=== PATIENT | female | born 1995 | race African-American/Black ===

== ENCOUNTER 2017-05-02 15:39 | Emergency (ER) | payer MEDICAID, OTHER ==
[~2017-05-02] VITALS: Ht 160 cm; Wt 58.0 kg
[2017-05-02 15:40] VITALS: BP 111/64; PULSE 97; RESP 14; TEMP 98; O2SAT 99
--- NOTE | 2017-05-02 16:45 | PD ---
HPI Chief Complaint: Complaint Time Seen by Provider: 16:45 Travel History International Travel<30 days: No Contact w/Intl Traveler<30days: No Traveled to known affect area: No History of Present Illness HPI 21-year-old female presents to the ED for evaluation of one week history of thick white vaginal discharge. Denies fevers, chills, nausea, vomiting, abdominal pain, dysuria, back pain. Endorses unprotected sex with a male. Denies risk of . LMP "last month." PFSH Past Medical History Anemia: Yes ?: Unknown LMP: ON DEPO, IRREGULAR Social History Alcohol Use: No Tobacco Use: No Substance Use: No Allergies-Medications (Allergen,Severity, Reaction): Coded Allergies: No Known Allergies (Unverified , 05/02/17) Review of Systems Except as stated in HPI: all other systems reviewed are Neg Physical Exam Narrative GENERAL: Well-nourished, well-developed nontoxic-appearing petite black female in no acute distress. SKIN: Focused skin assessment warm/dry. HEAD: Normocephalic. EYES: No scleral icterus. No injection or drainage. NECK: Supple, trachea midline. No JVD or lymphadenopathy. CARDIOVASCULAR: Regular rate and rhythm without murmurs, gallops, or rubs. RESPIRATORY: Breath sounds equal bilaterally. No accessory muscle use. GASTROINTESTINAL: Abdomen soft, non-tender, nondistended. Active bowel sounds. GENITOURINARY: Normal external genitalia without lesions or erythema. Vaginal vault without blood. Scant thick, white drainage. Cervical os was closed without drainage. No cervical motion tenderness. Uterus nontender and nonenlarged. Bilateral adnexa nontender without masses. MUSCULOSKELETAL: No cyanosis, or edema. BACK: Nontender without obvious deformity. No CVA tenderness. Data Data Last Documented VS Vital Signs Date Time Temp Pulse Resp B/P Pulse Ox O2 Delivery O2 Flow Rate FiO2 05/02/17 18:42 78 20 104/60 98 05/02/17 15:40 98.0 Orders Urinalysis - C+S If Indicated (05/02/17 16:11) Ed Urine Pregnancytest Poc (05/02/17 16:11) Wet Prep Profile (05/02/17 16:11) Gc And Chlamydia Pcr (05/02/17 16:11) Azithromycin Powd Pack (Zithromax Powd P (05/02/17 18:00) Ceftriaxone Inj (Rocephin Inj) (05/02/17 18:00) Lidocaine 1% Inj (50 Ml) (Xylocaine 1% I (05/02/17 18:00) Labs Laboratory Tests Test 05/02/17 05/02/17 16:10 16:55 Urine Color YELLOW Urine Turbidity CLEAR Urine pH 8.5 Urine Specific [place] 1.023 Urine Protein TRACE mg/dL Urine Glucose (UA) NEG mg/dL Urine Ketones NEG mg/dL Urine Occult Blood NEG Urine Nitrite NEG Urine Bilirubin NEG Urine Urobilinogen 2.0 MG/DL Urine Leukocyte Esterase NEG Urine RBC 1 /hpf Urine WBC LESS THAN 1 /hpf Urine Squamous Epithelial 4 /hpf Cells Urine Amorphous Sediment RARE Urine Bacteria RARE /hpf Urine Mucus FEW /lpf Microscopic Urinalysis Comment CULT NOT INDICATED Clue Cells (Wet Prep) NONE SEEN Vaginal Trichomonas (Wet Prep) NONE SEEN Vaginal Yeast (Wet Prep) NONE SEEN MDM Medical Decision Making Medical Screen Exam Complete: Yes Emergency Medical Condition: Yes Differential Diagnosis UTI versus vaginal candidiasis versus GC versus chlamydia versus CVA versus other Narrative Course 21-year-old female presents to the ED for evaluation of one week history of thick white vaginal discharge. Denies fevers, chills, nausea, vomiting, abdominal pain, dysuria, back pain. Endorses unprotected sex with a male. Denies risk of . LMP "last month." Patient is afebrile, nontoxic- appearing on presentation. Abdominal exam is benign. There is scant thick white discharge in the vaginal vault but the pelvic exam is otherwise unremarkable. ED urine test negative. No culture indicated of the UA. Wet prep negative. GC and chlamydia pending. I discussed the results of the the workup with the patient. Given her risk of unprotected sex I recommended. Treatment for GC and chlamydia. The patient consented to this treatment. She is instructed to abstain or use barrier methods during sexual activity, follow-up with the health department for full STD screening. She indicated understanding of the instructions and is agreeable to the care plan. She is stable and discharged home. Diagnosis Primary Impression: Vaginal discharge Referrals: [employer] [facility] Dept. Patient Instructions: General Instructions, Sexually Transmitted Diseases in Adolescents (ED) Additional Instructions: Rest, hydrate. Use condoms to help prevent STDs. He were empirically treated for gonorrhea and chlamydia today. Abstain from sexual activity until cure is proven. Follow-up with the health department for a STD screen and test of cure. Return to the ED for worsening of symptoms or any urgent or emergent medical condition. Disposition: 01 DISCHARGE HOME Condition: Stable Deja Patricio May 02, 2017 16:45
[2017-05-02 17:01] LABS: BACTERIA, URINE RARE /hpf; BLOOD, URINE NEG (NEG); GLUCOSE,URINE NEG (NEG); KETONE, URINE NEG (NEG); MUCUS URINE FEW /lpf (OCC); NITRITE,URINE NEG (NEG); PH, URINE 8.5 (5.0-8.5); SQUAMOUS EPITHELIAL CELL URINE 4 /hpf (0-5); URINE COLOR YELLOW (YELLW/STRAW)
[2017-05-02 17:03] LABS: COMMENT (UR) CULT NOT INDICATED; CULTURE IF INDICATED CULT NOT INDICATED
[2017-05-02] MEDS ORDERED: cefTRIAXone 250 MG VIAL IM ONE (18:00)
[2017-05-02] MEDS ORDERED: AZITHROMYCIN PWD FOR SUSP 1 GM PACKET PO ONE (18:00)
[2017-05-02] MEDS ORDERED: LIDOCAINE HCL 1% 50 ML VIAL IM ONE (18:00)
[2017-05-02 18:42] VITALS: BP 104/60
[2017-05-02 19:14] LABS: CHLAMYDIA PCR DETECTED (NOT DETECT); NEISSERIA PCR DETECTED (NOT DETECT)
== END 2017-05-02 18:43 | disposition home or self-care (01) ==
LOC: NEPD 15:39
DX: N89.8 Other specified noninflammatory disorders of vagina (principal); D64.9 Anemia, unspecified
CPT/HCPCS: 81001; 84703; 87210; 87491; 87591; 96372; 99284; J0696

== ENCOUNTER 2017-12-21 00:08 | Emergency (ER) | payer MEDICAID ==
[~2017-12-21] VITALS: Ht 160 cm; Wt 60.0 kg
[2017-12-21 00:09] VITALS: BP 103/72; PULSE 72; RESP 16; TEMP 98.4; O2SAT 100
--- NOTE | 2017-12-21 00:31 | PD ---
HPI Chief Complaint: Cold / Flu Symptoms Time Seen by Provider: 00:29 Travel History International Travel<30 days: No Contact w/Intl Traveler<30days: No Traveled to known affect area: No History of Present Illness HPI 22-year-old female presents to the emergency department for evaluation of cough and chest congestion worsening over the last week. Patient has had intermittent body aches. Subjective fever and chills. Her throat has been intermittently sore. Patient denies any nausea or vomiting. She has no current fever. She has no other symptoms to report at this time. Denies chance of . [facility] Past Medical History Anemia: Yes ?: Not Past Surgical History Surgical History: No Previous Surgery Social History Alcohol Use: Yes ([facility]) Tobacco Use: No Substance Use: No Allergies-Medications (Allergen,Severity, Reaction): Coded Allergies: No Known Allergies (Unverified Adverse Reaction, Unknown, 12/21/17) Reported Meds & Prescriptions Reported Meds & Active Scripts Active Tessalon Perles (Benzonatate) 100 Mg Cap 200 Mg PO TID PRN Review of Systems Except as stated in HPI: all other systems reviewed are Neg Physical Exam Narrative GENERAL: Well-nourished female patient in no acute distress. SKIN: Focused skin assessment warm/dry. HEAD: Atraumatic. Normocephalic. EYES: Pupils equal and round. No scleral icterus. No injection or drainage. ENT: No nasal bleeding or discharge. Mucous membranes pink and moist. NECK: Trachea midline. No JVD. CARDIOVASCULAR: Regular rate and rhythm. No murmur appreciated. RESPIRATORY: No accessory muscle use. Clear to auscultation. Breath sounds equal bilaterally. GASTROINTESTINAL: Abdomen soft, non-tender, nondistended. Hepatic and splenic margins not palpable. MUSCULOSKELETAL: No obvious deformities. No clubbing. No cyanosis. No edema. NEUROLOGICAL: Awake and alert. No obvious cranial nerve deficits. Motor grossly within normal limits. Normal speech. PSYCHIATRIC: Appropriate mood and affect; insight and judgment normal. Data Data Last Documented VS Vital Signs Date Time Temp Pulse Resp B/P (MAP) Pulse Ox O2 Delivery O2 Flow Rate FiO2 12/21/17 00:09 98.4 72 16 103/72 (82) 100 Room Air Orders Orders Influenzae A/B Antigen (12/21/17 00:32) Ed Discharge Order (12/21/17 01:09) MDM Medical Decision Making Medical Screen Exam Complete: Yes Emergency Medical Condition: Yes Medical Record Reviewed: Yes Differential Diagnosis Common cold versus pneumonia versus influenza versus allergies Narrative Course 22-year-old female presents to emergency department for evaluation. Patient appears without distress. Vital signs are stable. Influenza screen is negative. Patient is counseled on care for a likely viral URI. She'll be prescribed Tessalon Perles. Encouraged follow-up with primary care provider and advised her to return immediately with any acute worsening of symptoms. Diagnosis Primary Impression: URI (upper respiratory infection) Qualified Codes: J06.9 - Acute upper respiratory infection, unspecified Referrals: Primary Care Physician Patient Instructions: General Instructions, Upper Respiratory Infection (ED) Departure Forms: Tests/Procedures, Work Release Enter return to work date: Dec 22, 2017 Additional Instructions: Rest Maintain adequate oral hydration Humidified air may help to alleviate symptoms Follow-up with a primary care provider Return immediately with any acute worsening of symptoms Med/Other Pt SpecificInfo: Prescription(s) given Scripts Benzonatate (Tessalon Perles) 100 Mg Cap 200 MG PO TID Y for COUGH, #20 CAP 0 Refills Prov: Rossy Lord 12/21/17 Disposition: 01 DISCHARGE HOME Condition: Stable Rossy Lord Dec 21, 2017 00:31
[2017-12-21] MEDS ORDERED: BENZ100 PO (01:11)
== END 2017-12-21 02:44 | disposition home or self-care (01) ==
LOC: NEPD 00:08
DX: J06.9 Acute upper respiratory infection, unspecified (principal)
CPT/HCPCS: 87804; 99283

== ENCOUNTER 2018-03-11 16:02 | Emergency (ER) | payer SELFPAY ==
[~2018-03-11] VITALS: Ht 160 cm; Wt 62.0 kg
[~2018-03-11 16:02] MED LIST: BENZ100 PO
[2018-03-11 16:17] VITALS: BP 117/66; PULSE 85; RESP 19; TEMP 98.3; O2SAT 100
[2018-03-12] MEDS ORDERED: METR-1 PO (11:01)
== END 2018-03-11 18:46 | disposition left against medical advice (07) ==
LOC: NED 16:02
DX: R10.9 Unspecified abdominal pain (principal); Z53.21 Procedure and treatment not carried out due to patient leaving prior to being seen by health care provider
CPT/HCPCS: 99281

== ENCOUNTER 2018-03-12 08:40 | Emergency (ER) | payer MEDICAID ==
[~2018-03-12] VITALS: Ht 160 cm; Wt 61.2 kg
[2018-03-12 08:42] VITALS: BP 116/73; PULSE 85; RESP 16; TEMP 97.9; O2SAT 100
--- NOTE | 2018-03-12 09:24 | PD ---
HPI Chief Complaint: Assembly Supervisor Problem/Complaint Time Seen by Provider: 09:04 Travel History International Travel<30 days: No Contact w/Intl Traveler<30days: No Traveled to known affect area: No History of Present Illness HPI The patient is a 22-year-old female who presents to emergency department for vaginal discharge for 2 weeks duration. The patient notes vaginal discharge which she describes as thick, white, with a foul smell for 2 weeks. She denies any dysuria, frequency, urgency, or pelvic pain. She does have a history of previous gonorrhea and chlamydia that was treated over the summertime of 2016. The patient had Depo injection in the past, has irregular menstrual cycles. Her last menstrual cycle was January 2018. She is sexually active. She denies any nausea, vomiting, upper abdominal pain, fever, chills, or sweats. Symptoms are moderate. PFSH Past Medical History Anemia: Yes ?: Not LMP: 02/06/18-- DEPO Past Surgical History Surgical History: No Previous Surgery Social History Alcohol Use: Yes (OCC) Tobacco Use: No Substance Use: No Allergies-Medications (Allergen,Severity, Reaction): Coded Allergies: No Known Allergies (Unverified Adverse Reaction, Unknown, 12/21/17) Reported Meds & Prescriptions Reported Meds & Active Scripts Active No Active Prescriptions or Reported Medications Review of Systems Except as stated in HPI: all other systems reviewed are Neg General / Constitutional: No: Fever, Chills Gastrointestinal: No: Nausea, Vomiting, Abdominal Pain Genitourinary: Positive: Discharge, No: Urgency, Frequency, Dysuria, Hematuria , Pelvic Pain, Vaginal Bleeding Skin: No Rash, No Itching Physical Exam Narrative GENERAL: Awake, alert, pleasant 22-year-old female who appears her stated age and is in no acute respiratory distress. SKIN: Focused skin assessment warm/dry. HEAD: Atraumatic. Normocephalic. GASTROINTESTINAL: Abdomen soft, non-tender, nondistended. No rebound tenderness. No guarding or rigidity. No suprapubic tenderness. Back: No CVA tenderness. Genitourinary: The exam was performed in the presence of a female nurse. External examination reveals no rashes or lesions. Speculum examination reveals thick white discharge in the vaginal vault. Cervix is closed. No cervical motion tenderness or adnexal tenderness. MUSCULOSKELETAL: No obvious deformities. No clubbing. No cyanosis. No edema. NEUROLOGICAL: Awake and alert. No obvious cranial nerve deficits. Motor grossly within normal limits. Normal speech. PSYCHIATRIC: Appropriate mood and affect; insight and judgment normal. Data Data Last Documented VS Vital Signs Date Time Temp Pulse Resp B/P (MAP) Pulse Ox O2 Delivery O2 Flow Rate FiO2 03/12/18 08:42 97.9 85 16 116/73 (87) 100 Orders Orders Gc And Chlamydia Pcr (03/12/18 09:20) Wet Prep Profile (03/12/18 09:20) Urinalysis - C+S If Indicated (03/12/18 09:20) Ua Includes Microscopic (03/12/18 09:20) Ed Urine Pregnancytest Poc (03/12/18 09:20) Azithromycin Powd Pack (Zithromax Powd P (03/12/18 10:00) Ceftriaxone Inj (Rocephin Inj) (03/12/18 10:00) Lidocaine 1% Inj (50 Ml) (Xylocaine 1% I (03/12/18 10:00) Lidocaine Pf 1% Inj (Xylocaine-Mpf 1% In (03/12/18 10:05) Labs Laboratory Tests Test 03/12/18 09:23 03/12/18 10:06 Clue Cells (Wet Prep) PRESENT Vaginal Trichomonas (Wet Prep) NS Vaginal Yeast (Wet Prep) NS Urine Color YELLOW Urine Turbidity HAZY Urine pH 5.5 Urine Specific [place] 1.015 Urine Protein NEG mg/dL Urine Glucose (UA) NEG mg/dL Urine Ketones NEG mg/dL Urine Occult Blood NEG Urine Nitrite NEG Urine Bilirubin NEG Urine Urobilinogen LESS THAN 2.0 MG/DL Urine Leukocyte Esterase NEG Urine RBC LESS THAN 1 /hpf Urine WBC 1 /hpf Urine Squamous Epithelial Cells 7 /hpf Urine Bacteria RARE /hpf Urine Mucus FEW /lpf Microscopic Urinalysis Comment CULT NOT INDICATED MDM Medical Decision Making Medical Screen Exam Complete: Yes Emergency Medical Condition: Yes Medical Record Reviewed: Yes Interpretation(s) Laboratory Tests Test 03/12/18 09:23 03/12/18 10:06 Clue Cells (Wet Prep) PRESENT Vaginal Trichomonas (Wet Prep) NS Vaginal Yeast (Wet Prep) NS Urine Color YELLOW Urine Turbidity HAZY Urine pH 5.5 Urine Specific [place] 1.015 Urine Protein NEG mg/dL Urine Glucose (UA) NEG mg/dL Urine Ketones NEG mg/dL Urine Occult Blood NEG Urine Nitrite NEG Urine Bilirubin NEG Urine Urobilinogen LESS THAN 2.0 MG/DL Urine Leukocyte Esterase NEG Urine RBC LESS THAN 1 /hpf Urine WBC 1 /hpf Urine Squamous Epithelial Cells 7 /hpf Urine Bacteria RARE /hpf Urine Mucus FEW /lpf Microscopic Urinalysis Comment CULT NOT INDICATED Differential Diagnosis Differential diagnosis includes PID, cervicitis, trichomonas, bacterial vaginosis, chlamydia, gonorrhea, ectopic , UTI, foreign body. Narrative Course A UA was sent to lab at bedside UA test was obtained, test was negative. A pelvic exam was completed in the presence of a female nurse, wet prep and gonorrhea chlamydia PCR were sent to lab. I reviewed the patient' s EMR, she was seen on May 02, 2017 was positive for gonorrhea and chlamydia, wet prep at that time was negative. UA is negative. Wet prep is positive for clue cells. The patient received Rocephin and Zithromax, will be discharged home on Flagyl. Diagnosis Primary Impression: Vaginal discharge Additional Impression: Bacterial vaginosis Patient Instructions: General Instructions Additional Instructions: Medications as directed. Follow-up with your primary physician. Please provide the patient a copy of her lab results at discharge. Return if symptoms worsen or progress. Med/Other Pt SpecificInfo: Prescription(s) given Scripts Metronidazole (Flagyl) 500 Mg Tab 500 MG PO BID for Infection for 7 Days, #14 TAB 0 Refills Prov: Jordy Melissa MD 03/12/18 Disposition: DISCHARGE HOME Condition: Stable Jordy Melissa MD Mar 12, 2018 09:24
[2018-03-12] MEDS ORDERED: cefTRIAXone 250 MG VIAL IM ONE (10:00)
[2018-03-12] MEDS ORDERED: AZITHROMYCIN PWD FOR SUSP 1 GM PACKET PO ONE (10:00)
[2018-03-12] MEDS ORDERED: LIDOCAINE HCL 1% 50 ML VIAL IM ONE (10:00)
[2018-03-12] MEDS ORDERED: LIDOCAINE HCL 1% PF 30 ML VIAL ONE (10:05)
[2018-03-12 10:37] LABS: BACTERIA, URINE RARE /hpf; BILIRUBIN, URINE NEG (NEG); BLOOD, URINE NEG (NEG); GLUCOSE,URINE NEG (NEG); KETONE, URINE NEG (NEG); MUCUS URINE FEW /lpf (OCC); NITRITE,URINE NEG (NEG); PH, URINE 5.5 (5.0-8.5); SQUAMOUS EPITHELIAL CELL URINE 7 /hpf (0-5); URINE COLOR YELLOW (YELLW/STRAW); URINE LEUKOCYTE ESTERASE NEG (NEG)
[2018-03-12] MEDS ORDERED: METR-1 PO (11:01)
== END 2018-03-12 11:10 | disposition home or self-care (01) ==
LOC: NEPD 08:40
DX: N76.0 Acute vaginitis (principal); B96.89 Other specified bacterial agents as the cause of diseases classified elsewhere; D64.9 Anemia, unspecified
CPT/HCPCS: 81001; 84703; 87210; 87491; 87591; 96372; 99284; J0696